=== PATIENT | male | born 1990 | race Caucasian/White ===

== ENCOUNTER 2016-11-06 15:33 | Emergency (ER) | payer OTHER ==
[~2016-11-06] VITALS: Ht 185.4 cm; Wt 77.1 kg
[~2016-11-06 15:33] MED LIST: ADVAIR HFA115 MCG/21 INH; KEPPRA 500 MG500 M1 PO; OMEPRAZOLE40 MG PO; ONDANSETRON HCL4 M2 PO; PHENERGAN 25 MG25 M1 PO; PROAIR HFA8.5 GM INH; PROMS25 WY RECTAL; SINGULAIR 10 MG10 M1 PO; VIMPAT100 MG PO; ZOFRAN ODT4 MG PO; ZOFRAN ODT8 MG PO
[2016-11-06] MEDS ORDERED: VENTOLIN HFA 1818 GM INH (17:13)
[2016-11-06] MEDS ORDERED: MEDROL DOSPAK21 TAB PO (17:13)
[2016-11-06 17:32] VITALS: BP 140/88
[2016-12-20] MEDS ORDERED: ONDANSETRON HCL4 M2 PO (00:08)
[2016-12-21] MEDS ORDERED: CIPRO500 MG PO (18:14)
[2016-12-21] MEDS ORDERED: PHENERGAN 25 MG25 M1 PO (18:14)
== END 2016-11-06 17:36 | disposition home or self-care (01) ==
LOC: ER 15:33
DX: L50.8 Other urticaria (principal); T78.49XA Other allergy, initial encounter; J45.901 Unspecified asthma with (acute) exacerbation; G40.909 Epilepsy, unspecified, not intractable, without status epilepticus; F17.210 Nicotine dependence, cigarettes, uncomplicated; F15.10 Other stimulant abuse, uncomplicated; Z86.711 Personal history of pulmonary embolism; Z88.8 Allergy status to other drugs, medicaments and biological substances; X58.XXXA Exposure to other specified factors, initial encounter

== ENCOUNTER 2017-01-29 21:24 | Emergency (ER) | payer OTHER ==
[~2017-01-29] VITALS: Ht 185.4 cm; Wt 79.4 kg
[~2017-01-29 21:24] MED LIST changes: +CIPRO500 MG PO; +MEDROL DOSPAK21 TAB PO; +VENTOLIN HFA 1818 GM INH
[2017-01-29 21:52] LABS: HEMATOCRIT 52.6 % (42.0-52.0); HEMOGLOBIN 18.2 gm/dL (14.0-18.0); MCH 32.9 pg (26.0-34.0); MCHC 34.6 g/dL (28.0-37.0); MCV 95.3 fL (80.0-100.0); RBC 5.52 mil/uL (4.50-6.00); WBC 13.3 thou/uL (4.0-11.0)
[2017-01-29 21:54] LABS: MANUAL DIFF YES
[2017-01-29 22:00] LABS: CALCIUM 11.1 mg/dL (8.5-10.1); POTASSIUM 4.4 mmol/L (3.5-5.1)
[2017-01-29 22:06] LABS: ALBUMIN 5.9 g/dL (3.4-5.0); TOTAL BILIRUBIN 0.8 mg/dL (<0.1-1.0); TOTAL PROTEIN 10.2 g/dL (6.4-8.2)
[2017-01-29 22:17] LABS: ABSOLUTE NEUTROPHILS 12.2 thou/uL (1.4-8.2); TOTAL CELL COUNT 100
[2017-01-29 22:25] LABS: PLATELET COUNT 295 thou/uL (150-400)
[2017-01-29] MEDS ORDERED: PHENERGAN 25 MG25 M1 PO (23:29)
[2017-01-29] MEDS ORDERED: LEVSIN0.125 MG PO (23:29)
[2017-01-29 23:36] LABS: URINE BILIRUBIN 2+ (Negative); URINE BLOOD 1+ (Negative); URINE COLOR YELLOW; URINE GLUCOSE-RANDOM* NEGATIVE (Negative); URINE KETONES 1+ (Negative); URINE NITRITE NEGATIVE (Negative); URINE PROTEIN (DIPSTICK) 3+ (Negative); URINE SPECIFIC GRAVITY >= 1.030 (1.003-1.035); URINE UROBILINOGEN 0.2 E.U./dl (0.2-1.0)
[2017-01-29 23:40] LABS: ICTOTEST (BILI CONFIRMATORY) Positive (Negative)
[2017-01-29 23:46] LABS: CASTS None Seen /LPF (None Seen); SQUAMOUS None Seen /LPF (0-3)
[2017-01-29 23:47] LABS: BACTERIA None Seen /HPF (None Seen); CRYSTALS None Seen /LPF (None Seen); URINE RBC 0-2 Rare /HPF (0-2); URINE WBC None Seen /HPF (0-5)
[2017-01-30 00:42] VITALS: BP 112/84
== END 2017-01-30 00:43 | disposition home or self-care (01) ==
LOC: ER 21:24
PROVIDERS: Physician Assistant
DX: R11.2 Nausea with vomiting, unspecified (principal); R19.7 Diarrhea, unspecified; R10.9 Unspecified abdominal pain; G40.909 Epilepsy, unspecified, not intractable, without status epilepticus; F12.10 Cannabis abuse, uncomplicated; F17.210 Nicotine dependence, cigarettes, uncomplicated; Z86.711 Personal history of pulmonary embolism; Z86.73 Personal history of transient ischemic attack (TIA), and cerebral infarction without residual deficits; Z88.8 Allergy status to other drugs, medicaments and biological substances

== ENCOUNTER 2017-09-27 01:10 | Emergency (ER) | payer OTHER ==
[~2017-09-27] VITALS: Ht 185.4 cm; Wt 81.7 kg
[~2017-09-27 01:10] MED LIST changes: +LEVSIN0.125 MG PO
[2017-09-27 01:15] VITALS: BP 168/109
== END 2017-09-27 02:37 | disposition home or self-care (01) ==
LOC: ER 01:10
DX: S61.215A Laceration without foreign body of left ring finger without damage to nail, initial encounter (principal); F17.210 Nicotine dependence, cigarettes, uncomplicated; Z86.73 Personal history of transient ischemic attack (TIA), and cerebral infarction without residual deficits; Z86.711 Personal history of pulmonary embolism; Z88.8 Allergy status to other drugs, medicaments and biological substances; W26.8XXA Contact with other sharp object(s), not elsewhere classified, initial encounter; Y93.89 Activity, other specified; Y92.89 Other specified places as the place of occurrence of the external cause; Y99.8 Other external cause status